=== PATIENT | female | born 1960 | race Two or more races ===

== ENCOUNTER 2018-12-06 07:43 | Outpatient (CLI) | payer MEDICARE | END 2018-12-06 23:59 | disposition home or self-care (01) | LOC: CVU 07:43 → MERGE 08:00 → CVU 23:59 | PROVIDERS: ATTEND Internal Medicine Cardiovascular Disease | DX: R60.0 Localized edema (principal); F17.210 Nicotine dependence, cigarettes, uncomplicated; I78.1 Nevus, non-neoplastic | CPT/HCPCS: 93922; 93970 ==